=== PATIENT | female | born 1940 | race Caucasian/White ===

== ENCOUNTER 2021-02-08 10:16 | Emergency (ER) | payer MEDICARE, BC ==
[~2021-02-08] VITALS: Ht 157.5 cm; Wt 55.0 kg
[~2021-02-08 10:16] MED LIST: CHOL100012 PO; RIVA20TA PO; SIMV-42 PO; SOTA80TA73 PO
[2021-02-08 10:49] LABS: BASOPHILS % (AUTO) 0.8 % (0-1); EOSINOPHILS # (AUTO) 0.1 X10'3 (0-0.9); EOSINOPHILS % (AUTO) 1.4 % (0-6); HEMATOCRIT 38.7 % (35.0-45.0); HEMOGLOBIN 12.7 g/dl (12.0-16.0); MEAN CORPUSCULAR HEMOGLOBIN 27.1 PG (27.0-31.0); MEAN CORPUSCULAR HGB CONC 32.9 g/dL (33.0-36.5); MEAN CORPUSCULAR VOLUME 82.5 FL (78-98); MEAN PLATELET VOLUME 7.1 FL (7.4-10.4); MONOCYTES # (AUTO) 0.4 X10'3 (0-0.9); MONOCYTES % (AUTO) 9.8 % (2-12); NEUTROPHILS # (AUTO) 2.6 X10'3 (1.8-7.7); PLATELET COUNT 146 X10'3 (140-440); RED BLOOD COUNT 4.69 X10'6 (4.20-5.60); RED CELL DISTRIBUTION WIDTH 15.1 % (11.5-14.5); WHITE BLOOD COUNT 4.1 X10'3 (4.5-11.0)
[2021-02-08 11:13] LABS: ALANINE AMINOTRANSFERASE 20 U/L (12-78); ALBUMIN 3.4 G/DL (3.4-5.0); ALBUMIN/GLOBULIN RATIO 1.2 (1.1-1.5); ALKALINE PHOSPHATASE 84 IU/L (46-116); ANION GAP 11 (8-16); ASPARTATE AMINO TRANSFERASE 20 U/L (10-37); BILIRUBIN,TOTAL 0.6 MG/DL (0.1-1.0); BLOOD UREA NITROGEN 18 MG/DL (7-18); BUN/CREATININE RATIO 25.4 (6.6-38.0); CALCIUM 9.3 MG/DL (8.5-10.1); CHLORIDE 108 MMOL/L (99-107); CREATININE 0.71 MG/DL (0.40-0.90); GLUCOSE 122 MG/DL (70-104); POTASSIUM 3.7 MMOL/L (3.5-5.1); SODIUM 145 MMOL/L (135-145); TOTAL CARBON DIOXIDE 25.9 MMOL/L (24-32); TOTAL PROTEIN 6.3 G/DL (6.4-8.2); eGFR 79 ML/MIN
[2021-02-08] MEDS ORDERED: metoprolol tartrate 1mg/ml inj IV ONE (13:00)
[2021-02-08 14:36] VITALS: BP 128/72
[2021-02-15] MEDS ORDERED: CARV6.2555 PO (13:36)
[2021-02-16] MEDS ORDERED: COR3.125T PO (14:37)
[2021-02-16] MEDS ORDERED: CEFD300C3 PO ×2 (14:37)
[2021-02-18] MEDS ORDERED: SULF1TAB49 PO (13:59)
== END 2021-02-08 14:56 | disposition home or self-care (01) ==
LOC: ER 10:16
DX: I48.20 Chronic atrial fibrillation, unspecified (principal); R07.89 Other chest pain; R53.1 Weakness; I11.0 Hypertensive heart disease with heart failure; I50.9 Heart failure, unspecified; Z85.9 Personal history of malignant neoplasm, unspecified; Z90.49 Acquired absence of other specified parts of digestive tract; Z98.890 Other specified postprocedural states; Z79.899 Other long term (current) drug therapy
CPT/HCPCS: 36415; 71045; 80053; 83880; 84484; 85025; 93005; 96374; 99285; J3490

== ENCOUNTER 2022-02-19 10:25 | Emergency (ER) | payer MEDICARE, BC ==
[~2022-02-19] VITALS: Ht 152.4 cm; Wt 52.3 kg
[~2022-02-19 10:25] MED LIST changes: +COR3.125T PO; -SOTA80TA73 PO
[2022-02-19 11:07] VITALS: BP 125/72
[2022-02-19] MEDS ORDERED: HYDROcodone/acetaminophen 5mg/325mg tablet PO ONE (15:10)
[2022-02-19] MEDS ORDERED: HYDR-3965 PO (15:48)
[2022-02-21] MEDS ORDERED: HYDR-3965 PO (13:27)
== END 2022-02-19 16:18 | disposition home or self-care (01) ==
LOC: ER 10:26
DX: M25.551 Pain in right hip (principal); M54.41 Lumbago with sciatica, right side; I50.9 Heart failure, unspecified; Z90.710 Acquired absence of both cervix and uterus; Z87.891 Personal history of nicotine dependence
CPT/HCPCS: 73502; 99283